=== PATIENT | female | born 1995 | race Caucasian/White ===

== ENCOUNTER 2020-01-05 16:29 | Emergency (ER) | payer BC ==
[~2020-01-05] VITALS: Ht 157.5 cm; Wt 67.2 kg
[2020-01-05 21:16] VITALS: BP 125/77
== END 2020-01-05 21:16 | disposition home or self-care (01) ==
LOC: ED 16:29
DX: R07.89 Other chest pain (principal); Z88.0 Allergy status to penicillin
CPT/HCPCS: J1885